=== PATIENT | male | born 1975 | race Caucasian/White ===

== ENCOUNTER → 2017-01-13 | Outpatient (CLI) | payer OTHER ==
--- NOTE | 2017-01-13 16:34 | REP ---
Clinical: Right flank pain. Technique: Single supine view of the abdomen and pelvis. Comparison: None. Findings: Bowel gas pattern is nonspecific. No definite renal calcifications are appreciated. Calcifications in the pelvis likely represent phleboliths. Osseous structures are intact. Impression: No obvious renal calcifications. Calcification in the pelvis likely phleboliths. Signed by Kingston Byrnes MD 01/13/2017 04:25 P
[2017-01-13 16:58] LABS: CALCIUM OXALATE CRYSTALS SMALL
== END ==
LOC: M RAD 15:39
PROVIDERS: ATTEND Physician Assistant Medical
DX: R10.9 Unspecified abdominal pain (principal)

== ENCOUNTER 2017-10-26 13:25 | Emergency (ER) | payer OTHER ==
[2017-10-26] MEDS: NITROGLYCERIN 0.4 MG SUBL TABLET SL ×3 (14:06→14:20)
[2017-10-26] MEDS: ASPIRIN 81 MG CHEW TABLET PO (14:06)
[2017-10-26 14:16] LABS: BASO % 0.7 % (0.0-1.0); HEMATOCRIT 43.3 % (42.0-52.0); HEMOGLOBIN 15.1 g/dl (13.5-17.5); IMMATURE GRANULOCYTE % 0.2 % (0-3.0); LYMPH # 1.2 10^3/uL (1.5-4.5); LYMPH % 19.1 % (24.0-44.0); MEAN CORPUSCULAR HEMOGLOBIN 31.7 pg (27.0-33.0); MEAN CORPUSCULAR HGB CONC 34.9 g/dl (32.0-36.5); MONO # 0.4 10^3/uL (0.0-0.8); NEUTROPHILS # 4.5 10^3/uL (1.8-7.7); PLATELET COUNT, AUTOMATED 254 10^3/uL (150-450); RED BLOOD COUNT 4.76 10^6/uL (4.30-6.10); RED CELL DISTRIBUTION WIDTH 12.1 % (11.5-14.5); WHITE BLOOD COUNT 6.1 10^3/uL (4.0-10.0)
[2017-10-26 14:25] LABS: INR 0.94; PROTHROMBIN TIME 12.7 SECONDS (12.4-14.5)
[2017-10-26 14:26] LABS: PARTIAL THROMBOPLASTIN TIME 25.8 SECONDS (26.8-37.9)
[2017-10-26 15:07] LABS: ALBUMIN 3.8 GM/DL (3.2-5.2); ALKALINE PHOSPHATASE 69 U/L (45-117); ALT/SGPT 36 U/L (12-78); ANION GAP 5 MEQ/L (8-16); AST/SGOT 23 U/L (7-37); BILIRUBIN,DIRECT < 0.1 MG/DL (0.0-0.2); BILIRUBIN,TOTAL 0.5 MG/DL (0.2-1.0); BLOOD UREA NITROGEN 19 MG/DL (7-18); CALCIUM LEVEL 9.1 MG/DL (8.5-10.1); CARBON DIOXIDE LEVEL 28 MEQ/L (21-32); CHLORIDE LEVEL 106 MEQ/L (98-107); CK-MB VALUE MASS < 1.0 NG/ML (<3.6); CPK CREATINE PHOSPHOKINASE 153 U/L (39-308); CREATININE FOR GFR 1.14 MG/DL (0.70-1.30); GLOMERULAR FILTRATION RATE > 60.0 (>60); GLUCOSE, FASTING 128 MG/DL (70-100); LIPASE 215 U/L (73-393); MB/CK RELATIVE INDEX 0.65 (< OR =4); SODIUM LEVEL 139 MEQ/L (136-145); TOTAL PROTEIN 7.6 GM/DL (6.4-8.2); TROPONIN I < 0.02 NG/ML (< 0.10)
[2017-10-26] MEDS ORDERED: ISOVUE-370 76% 100ML VIAL (Q9967) As Ordered (16:28)
[2017-10-26] MEDS: MORPHINE 4 MG/ML 1ML VIAL/SYRINGE (J2270) IV (16:49)
[2017-10-26 20:09] LABS: CK-MB VALUE MASS < 1.0 NG/ML (<3.6); CPK CREATINE PHOSPHOKINASE 139 U/L (39-308); MB/CK RELATIVE INDEX 0.71 (< OR =4); TROPONIN I < 0.02 NG/ML (< 0.10)
[2017-10-26] MEDS: ACETAMINOPHEN TAB 650MG DOSE (2X325MG) PO (20:23)
== END 2017-10-26 20:49 | disposition home or self-care (01) ==
LOC: M ED 13:25
DX: R07.9 Chest pain, unspecified (principal); R91.1 Solitary pulmonary nodule; E78.9 Disorder of lipoprotein metabolism, unspecified; M54.5 Low back pain; F17.220 Nicotine dependence, chewing tobacco, uncomplicated
CPT/HCPCS: J2270

== ENCOUNTER 2018-05-31 11:21 | Emergency (ER) | payer OTHER ==
[2018-05-31] MEDS: methylPREDNISolone INJ 125 MG/2 ML VIAL (J2930) IM (12:37)
== END 2018-05-31 13:35 | disposition home or self-care (01) ==
LOC: M ED 11:21
DX: M54.2 Cervicalgia (principal); R10.30 Lower abdominal pain, unspecified; F43.10 Post-traumatic stress disorder, unspecified; K21.9 Gastro-esophageal reflux disease without esophagitis; G47.00 Insomnia, unspecified; G54.0 Brachial plexus disorders
CPT/HCPCS: J2930

== ENCOUNTER 2018-06-01 18:53 | Emergency (ER) | payer OTHER ==
[2018-06-01] MEDS: predniSONE 20 MG TAB PO (20:55)
[2018-06-01] MEDS: GABAPENTIN 300 MG CAP PO (20:55)
== END 2018-06-01 20:59 | disposition home or self-care (01) ==
LOC: M ED 18:53
DX: G54.0 Brachial plexus disorders (principal); M54.12 Radiculopathy, cervical region; E78.00 Pure hypercholesterolemia, unspecified; G47.00 Insomnia, unspecified; K21.9 Gastro-esophageal reflux disease without esophagitis; F43.10 Post-traumatic stress disorder, unspecified; Z79.899 Other long term (current) drug therapy
CPT/HCPCS: 99283

== ENCOUNTER 2018-06-04 17:52 | Emergency (ER) | payer OTHER ==
[2018-06-04] MEDS: diazePAM 10 MG TAB PO (18:29)
== END 2018-06-04 20:17 | disposition home or self-care (01) ==
LOC: M ED 17:52
DX: M54.12 Radiculopathy, cervical region (principal); F41.9 Anxiety disorder, unspecified; K21.9 Gastro-esophageal reflux disease without esophagitis; E78.5 Hyperlipidemia, unspecified; Z79.899 Other long term (current) drug therapy
CPT/HCPCS: 99283

== ENCOUNTER 2018-06-15 19:30 | Emergency (ER) | payer OTHER ==
[2018-06-15] MEDS: LORazepam 2 MG/ML VIAL (J2060) IV (21:46)
[2018-06-15 22:20] LABS: BASO % 0.4 % (0.0-1.0); EOS % 0.1 % (0.0-3.0); HEMATOCRIT 44.2 % (42.0-52.0); HEMOGLOBIN 15.5 g/dl (13.5-17.5); IMMATURE GRANULOCYTE % 0.1 % (0-3.0); LYMPH # 1.5 10^3/uL (1.5-4.5); LYMPH % 21.6 % (24.0-44.0); MEAN CORPUSCULAR HEMOGLOBIN 32.4 pg (27.0-33.0); MEAN CORPUSCULAR HGB CONC 35.1 g/dl (32.0-36.5); MEAN CORPUSCULAR VOLUME 92.3 fl (80.0-96.0); MONO # 0.5 10^3/uL (0.0-0.8); MONO % 6.8 % (0.0-5.0); NEUTROPHILS # 4.8 10^3/uL (1.8-7.7); PLATELET COUNT, AUTOMATED 226 10^3/uL (150-450); RED BLOOD COUNT 4.79 10^6/uL (4.30-6.10); RED CELL DISTRIBUTION WIDTH 11.7 % (11.5-14.5); WHITE BLOOD COUNT 6.8 10^3/uL (4.0-10.0)
[2018-06-15 22:47] LABS: BLOOD UREA NITROGEN 12 MG/DL (7-18); GLUCOSE, FASTING 98 MG/DL (70-100)
[2018-06-15 22:48] LABS: ANION GAP 6 MEQ/L (8-16); CALCIUM LEVEL 8.4 MG/DL (8.5-10.1); CARBON DIOXIDE LEVEL 29 MEQ/L (21-32); CHLORIDE LEVEL 105 MEQ/L (98-107); CREATININE FOR GFR 1.03 MG/DL (0.70-1.30); GLOMERULAR FILTRATION RATE > 60.0 (>60); POTASSIUM SERUM 4.1 MEQ/L (3.5-5.1); SODIUM LEVEL 140 MEQ/L (136-145)
== END 2018-06-16 00:12 | disposition home or self-care (01) ==
LOC: M ED 06-16 00:12
DX: F41.9 Anxiety disorder, unspecified (principal); M54.2 Cervicalgia; G89.29 Other chronic pain; E78.9 Disorder of lipoprotein metabolism, unspecified; Z79.899 Other long term (current) drug therapy
CPT/HCPCS: J2060

== ENCOUNTER → 2018-12-01 | Outpatient (REF) | payer OTHER ==
[~2018-12-01] MED LIST: DICY10CA13 PO; GABA-843 PO; HYDR-3715 PO; HYDR-643 PO; IBUP-1022 PO; IBUP200C25 PO; MEDR4PAK PO; OMEP40CA2 PO; SERT-141 PO; VALI5TAB PO
[2018-12-01 12:59] LABS: HEMATOCRIT 44.3 % (42.0-52.0); HEMOGLOBIN 14.8 g/dl (13.5-17.5); MEAN CORPUSCULAR HEMOGLOBIN 29.7 pg (27.0-33.0); MEAN CORPUSCULAR HGB CONC 33.4 g/dl (32.0-36.5); MEAN CORPUSCULAR VOLUME 88.8 fl (80.0-96.0); PLATELET COUNT, AUTOMATED 232 10^3/uL (150-450); RED BLOOD COUNT 4.99 10^6/uL (4.30-6.10); WHITE BLOOD COUNT 15.5 10^3/uL (4.0-10.0)
[2018-12-01 13:36] LABS: MONO SCRN NEGATIVE (NEGATIVE)
== END ==
LOC: M LAB REF 19:09
PROVIDERS: ATTEND Nurse Practitioner Family
DX: J02.9 Acute pharyngitis, unspecified (principal)

== ENCOUNTER 2019-12-28 21:51 | Emergency (ER) | payer OTHER ==
[~2019-12-28] VITALS: Ht 182.9 cm; Wt 95.5 kg
[~2019-12-28 21:51] MED LIST changes: -OMEP40CA2 PO; +OMEP40CA97 PO
[2019-12-28] MEDS ORDERED: AUGM500T34 PO (21:59)
[2019-12-28] MEDS ORDERED: OMEP10CASR PO (21:59)
[2019-12-28] MEDS ORDERED: BUSP5TA PO (21:59)
[2019-12-28 23:15] LABS: BASO % 0.3 % (0.0-1.0); EOS % 0.2 % (0.0-3.0); HEMATOCRIT 45.2 % (42.0-52.0); HEMOGLOBIN 15.7 g/dl (13.5-17.5); LYMPH # 1.8 10^3/uL (1.5-5.0); LYMPH % 19.8 % (24.0-44.0); MEAN CORPUSCULAR HEMOGLOBIN 32.2 pg (27.0-33.0); MEAN CORPUSCULAR HGB CONC 34.7 g/dl (32.0-36.5); MEAN CORPUSCULAR VOLUME 92.6 fl (80.0-96.0); MONO # 0.6 10^3/uL (0.0-0.8); MONO % 6.4 % (0.0-5.0); NEUTROPHILS # 6.5 10^3/uL (1.5-8.5); NEUTROPHILS % 73.1 % (36.0-66.0); PLATELET COUNT, AUTOMATED 261 10^3/uL (150-450); RED BLOOD COUNT 4.88 10^6/uL (4.30-6.10); WHITE BLOOD COUNT 8.8 10^3/uL (4.0-10.0)
[2019-12-28 23:36] LABS: ERYTHROCYTE SEDIMENTATION RATE 9 mm/hr (0-15)
--- NOTE | 2019-12-28 23:38 | REPVR ---
PROCEDURE INFORMATION: Exam: US Duplex Right Upper Extremity Veins, Limited Exam date and time: 12/28/2019 11:32 PM Age: 44 years old Clinical indication: Pain; Arm, upper; Right; Additional info: R/O dvt, swelling/pain TECHNIQUE: Imaging protocol: Real-time Duplex ultrasound of the Right Upper Extremity with 2-D jackson scale, color Doppler flow and spectral waveform analysis with image documentation. Limited exam focused on the right upper extremity veins. COMPARISON: No relevant prior studies available. FINDINGS: Right deep veins: Unremarkable. Axillary and brachial veins are patent throughout without thrombus. Normal Doppler waveforms. Normal compressibility and/or augmentation response. Visualized internal jugular and subclavian veins are patent. Right superficial veins: Unremarkable. Visualized cephalic and basilic veins are patent without thrombus. Soft tissues: Unremarkable. IMPRESSION: No evidence of deep vein thrombosis. Electronically signed by: Yoko Padilla On 12/28/2019 23:38:29 PM
[2019-12-28 23:45] LABS: ALBUMIN 3.7 GM/DL (3.2-5.2); ALT/SGPT 39 U/L (12-78); BILIRUBIN,DIRECT < 0.1 MG/DL (0.0-0.2); BILIRUBIN,TOTAL 0.3 MG/DL (0.2-1.0); BLOOD UREA NITROGEN 17 MG/DL (7-18); C REACTIVE PROTEIN QUANTITATIV 0.52 MG/DL (0.00-0.30); CALCIUM LEVEL 8.5 MG/DL (8.5-10.1); CARBON DIOXIDE LEVEL 23 MEQ/L (21-32); CHLORIDE LEVEL 110 MEQ/L (98-107); CREATININE FOR GFR 1.01 MG/DL (0.70-1.30); GLOMERULAR FILTRATION RATE > 60.0 (>60); GLUCOSE, FASTING 152 MG/DL (70-100); POTASSIUM SERUM 3.6 MEQ/L (3.5-5.1); SODIUM LEVEL 143 MEQ/L (136-145); TOTAL PROTEIN 7.4 GM/DL (6.4-8.2)
[2019-12-29] MEDS ORDERED: ceFAZolin SOD 1 GM in D5W MINI-BAG PLUS 50 ML IV ONE (00:15)
[2019-12-29] MEDS ORDERED: DICL75TA PO (00:42)
[2019-12-29 01:07] VITALS: BP 122/69
== END 2019-12-29 01:08 | disposition home or self-care (01) ==
LOC: M ED 21:51
DX: L03.113 Cellulitis of right upper limb (principal); L03.011 Cellulitis of right finger; K21.9 Gastro-esophageal reflux disease without esophagitis; E78.5 Hyperlipidemia, unspecified; F43.10 Post-traumatic stress disorder, unspecified; F41.9 Anxiety disorder, unspecified; F32.9 Major depressive disorder, single episode, unspecified; Z79.2 Long term (current) use of antibiotics; Z79.899 Other long term (current) drug therapy
CPT/HCPCS: 80048; 80076; 83605; 85025; 85652; 86140; 87040; 93971; 96365; 99284; J0690

== ENCOUNTER → 2020-07-23 | Outpatient (CLI) | payer OTHER ==
[~2020-07-23] MED LIST changes: +AUGM500T34 PO; +BUSP5TA PO; +DICL75TA PO; +OMEP10CASR PO; +ROSU10TA6 PO
== END ==
LOC: M LABSMTC 10:10
PROVIDERS: ATTEND Anesthesiology
DX: Z01.812 Encounter for preprocedural laboratory examination (principal); Z20.822 Contact with and (suspected) exposure to COVID-19

== ENCOUNTER 2020-07-28 07:03 | Day surgery (SDC) | payer OTHER ==
[~2020-07-28] VITALS: Ht 182.9 cm; Wt 94.3 kg
[~2020-07-28 07:03] MED LIST changes: +GABA-282 PO; -GABA-843 PO; +NS 1,000 ML IV ONE
--- OUTSIDE RECORDS SUMMARY | 2020-07-28 07:08 | CCD | Continuity of Care Document ---
Author Author Kade NARAYAN M.D. Organization Unknown Address [address] [place] [id number] Phone [phone] Care Team Providers Care Program Planner Name Role Phone Reno Alfonso MD [facility] [phone] Problems Active Problems Provider Date Irritable bowel syndrome Paolo Narayan M.D. Onset: 06/2020 Gastroesophageal reflux disease Paolo Narayan M.D. Ons et: 10/17/2018 Social History Type Date Description Comments Sex Unknown ETOH Use Denies alcohol use Tobacco Use Start: Unknown Patient has never smoked Allergies, Adverse Reactions, Alerts Description No Known Drug Allergies Medications Active Medications SIG Qnty Indications Ordering Provide r Date Suprep Bowel Prep Kit 17.5-3.13-1.6GM/177ML Solution use as directed 354ml Paolo Narayan M.D. 05/27/2020 Gabapentin 300mg Capsules Take One Capsule By Mouth Three Times A Day Unknown Hydroxyzine HCL 50mg Tablets Unknown Buspirone HCL 10mg Tablets Unknown Diclofenac Sodium 75mg Tablets DR Unknown Immunizations Description No Information Available Vital Signs Date Vital Result Comment 05/27/2020 1:09pm Height 72 inches 6'0" Weight 206.00 lb BP Systolic 128 mmHg BP Diastolic 82 mmHg Heart Rate 81 /min BMI (Body Mass Index) 27.9 kg/m2 Weight 93.442 kg Body Temperature 97.0 F 10/17/2018 12:05pm Height 72 inches 6'0" Weight 201.00 lb BP Systolic 115 mmHg BP Diastolic 78 mmHg Heart Rate 83 /min BMI (Body Mass Index) 27.3 kg/m2 Weight 91.174 kg Results Description No Information Available Procedures Description No Information Available Medical Devices Description No Information Available Encounters Type Date Location Provider Dx Diagnosis Office Visit 05/27/2020 1:15p Main Office Paolo Narayan M.D. K 58.8 Other irritable bowel syndrome R12 Heartburn Assessments Date Code Description Provider 05/27/2020 K58.8 Irritable bowel syndrome Paolo Narayan M.D. 05/27/2020 R12 Heartburn Paolo hansen M.D. Plan of Treatment Future Appointment(s):* 06/18/2020 6:00 am - Pat-Remih at Main Office * 06/28/2020 9:00 am - Paolo Narayan M.D. at Main Office 05/27/2020 - Paolo Narayan M.D.* K58.8 Irritable bowel syndrome* Comments: * 45 yo -rwandan male refered for abdominal cramps/heartburn/irregular bowel habits. Antispasm meds help his symptoms. No weight loss, nausea/vomiting, or rectal bleeding. Plan:1. Colonoscopy + egd.2. Informed consent. * R12 Heartburn* Comments:* Schedule EGD.Informed consent given. Functional Status Description No Information Available Mental Status Description No Information Available Referrals Refer to Reason for Referral Status Appt Date Paolo Narayan M.D. Scheduled [address] [place] [phone]
--- OUTSIDE RECORDS SUMMARY | 2020-07-28 07:08 | CCD ---
Author Author [facility] Organization [facility] Address Unknown Phone Unavailable Care Team Providers Care Blind Stitch Machine Operator Name Role Phone Julian Narayan MD Unavailable Unavailable Julian Narayan MD Unavailable Unavailable Julian Narayan MD Unavailable Unavailable Julian Narayan MD Unavailable Unavailable Julian Narayan MD Unavailable Unavailable Julian Narayan MD Unavailable Unavailable Julian Narayan MD Unavailable Unavailable Julian Narayan MD Unavailable Unavailable Julian Narayan MD Unavailable Unavailable Julian Narayan MD Unavailable Unavailable Julian Narayan MD Unavailable Unavailable Julian Narayan MD Unavailable Unavailable Julian Narayan MD Unavailable Unavailable Julian Narayan MD Unavailable Unavailable Julian Narayan MD Unavailable Unavailable Julian Narayan MD Unavailable Unavailable Julian Narayan MD Unavailable Unavailable Julian Narayan MD Unavailable Unavailable Julian Narayan MD Unavailable Unavailable Julian Narayan MD Unavailable Unavailable Julian Narayan MD Unavailable Unavailable Julian Narayan MD Unavailable Unavailable Julian Narayan MD Unavailable Unavailable Helene, S Paolo MD Unavailable Unavailable Helene, S Paolo MD Unavailable Unavailable Helene, S Paolo MD Unavailable Unavailable Helene, S Paolo MD Unavailable Unavailable Helene, S Paolo MD Unavailable Unavailable Helene, S Paolo MD Unavailable Unavailable Helene, S Paolo MD Unavailable Unavailable Helene, S Paolo MD Unavailable Unavailable Helene, S Paolo MD Unavailable Unavailable Helene, S Paolo MD Unavailable Unavailable Helene, S Paolo MD Unavailable Unavailable Helene, S Paolo MD Unavailable Unavailable Helene, S Paolo MD Unavailable Unavailable Helene, S Paolo MD Unavailable Unavailable Helene, S Paolo MD Unavailable Unavailable Helene, S Paolo MD Unavailable Unavailable Helene, S Paolo MD Unavailable Unavailable Helene, S Paolo MD Unavailable Unavailable Helene, S Paolo MD Unavailable Unavailable Helene, S Paolo MD Unavailable Unavailable Helene, S Paolo MD Unavailable Unavailable Helene, S Paolo MD Unavailable Unavailable Helene, S Paolo MD Unavailable Unavailable Helene, S Paolo MD Unavailable Unavailable Re-disclosure Warning The records that you are about to access may contain information from federally-assisted alcohol or drug abuse programs. If such information is present, then the following federally mandated warning applies: This information has been disclosed to you from records protected by federal confidentiality rules (42 CFR part 2). The federal rules prohibit you from making any further disclosure of this information unless further disclosure is expressly permitted by the written consent of the person to whom it pertains or as otherwise permitted by 42 CFR part 2. A general authorization for the release of medical or other information is NOT sufficient for this purpose. The Federal rules restrict any use of the information to criminally investigate or prosecute any alcohol or drug abuse patient.The records that you are about to access may contain highly sensitive health information, the redisclosure of which is protected by Article 27-F of the [facility] Public Health law. If you continue you may have access to information: Regarding HIV / AIDS; Provided by facilities licensed or operated by the [facility] Office of Mental Health; or Provided by the [facility] Office for People With Developmental Disabilities. If such information is present, then the following [facility] mandated warning applies: This information has been disclosed to you from confidential records which are protected by state law. State law prohibits you from making any further disclosure of this information without the specific written consent of the person to whom it pertains, or as otherwise permitted by law. Any unauthorized further disclosure in violation of state law may result in a fine or skilled nursing sentence or both. A general authorization for the release of medical or other information is NOT sufficient authorization for further disc losure. Family History Family Member Name Family Member Gender Family Member Status Date o f Status Description Data Source(s) Unknown Unknown Problem [facility] ([facility]) Encounters Encounter Providers Location Date Indications Data Source(s ) Outpatient Attender: Paolo Narayan MD Main Office 05/27/2020 12:15:00 PM EST [facility] ([facility]) Medications Medication Brand Name Start Date Product Form Dose Route Admi nistrative Instructions Pharmacy Instructions Status Indications Reaction Description Data Source(s) Suprep Bowel Prep Kit Suprep Bowel Prep Kit 05/27/2020 12:00:00 AM EST active [facility] ([facility]) Diclofenac Sodium 75 MG Delayed Release Oral Tablet DICLOFEN AC SODIUM 12/29/2019 12:00:00 AM EDT tablet,delayed release (DR/EC) 30 T XOCHITL ONE TABLET BY MOUTH TWICE A DAY TAKE ONE TABLET BY MOUTH TWICE A DAY SOLD: 12/29/2019 [facility] 875-125 mg 12/28/2019 12:00:00 AM EDT tablet 20 TAKE ONE TABLET BY MOUTH TWICE A DAY FOR 10 DAYS TAKE ONE TABLET BY MOUTH TWICE A DAY FOR 10 DAYS SOLD: 12/28/2019 [facility] Insurance Providers Payer name Policy type / Coverage type Policy ID Covered constitution party ID Covered constitution party's relationship to marion Policy [place] Plan Information 'S ADMINISTRATION [id number] SP [id number] [facility] O [id number] S [id number] Com[employer]'s Administration Commercial [id number] Self [id number] [facility] [id number] SP [id number] [employer] O [id number] S [id number] [employer] - CLINIC [id number] 18 [id number] [facility] O [id number] S [id number] N REGIONAL CLAIMS JAMIE -CLINIC [id number] 18 [id number] N REGIONAL CLAIMS J[employer]IE -O/P [id number] 18 [id number] [facility] P [id number] S [id number] Problems, Conditions, and Diagnoses Code Display Name Description Problem Type Effective Dates Data Source(s) 85310175 Irritable bowel syndrome Irritable bowel syndrome Prob kimani 05/27/2020 12:00:00 AM EST [facility] ([facility]) Results ID Date Data Source [id number] 07/23/2020 11:00:00 AM EST [facility] Name Value Range Interpretation Code Description Data Vianca rce(s) Supporting Document(s) SARS coronavirus 2 RNA Not Detected [facility] [place] This lab was ordered by [facility] and reported by [facility]. Procedure Vital Signs ID Date Data Source UNK Name Value Range Interpretation Code Description Data Source(s) Body temperature 97.0 [degF] 97.0 [degF] [facility] ([facility]) Body weight 93.442 kg 93.442 kg [facility]) Body mass index (BMI) [Ratio] 27.9 kg/m2 27.9 k g/m2 [facility] ([facility]) Heart rate 81 /min 81 /min [facility] ([facility]) Diastolic blood pressure 82 mm[Hg] 82 mm[Hg] [facility] ([facility]) Systolic blood pressure 128 mm[Hg] 128 mm[Hg] M ED[facility] ([facility]) Body weight 206.00 [lb_av] 206.00 [lb_av] [facility] T ([facility]) Body height 72 [in_i] 72 [in_i] [facility]) 6'0"
[2020-07-28] MEDS ORDERED: LIDOCAINE 2% 100MG/5ML SDV (FOR ANES.) As Ordered ONE (07:12)
[2020-07-28] MEDS ORDERED: propofoL 200 MG/20 ML VIAL As Ordered ONE ×2 (07:12→07:46)
--- NOTE | 2020-07-28 07:51 | ROOR ---
Patient Name: Kade Long Procedure Date: 07/28/2020 7:35 AM Date of : 1975 Age: 45 Room: [facility] Gender: Male Note Status: Finalized Procedure: Upper Endoscopy + Biopsies Indications: Epigastric abdominal pain, Heartburn, Exclusion of Alcantara's esophagus Providers: Paolo Narayan MD Referring MD: [facility], Admin. Requesting Provider: Medicines: Monitored Anesthesia Care Complications: No immediate complications. Procedure: Pre-Anesthesia Assessment: - The heart rate, respiratory rate, oxygen saturations, blood pressure, adequacy of pulmonary ventilation, and response to care were monitored throughout the procedure. The Endoscope was introduced through the mouth, and advanced to the second part of duodenum. The upper GI endoscopy was accomplished without difficulty. The patient tolerated the procedure well. Findings: The Z-line was variable and was found 41 cm from the incisors. Multiple biopsies were obtained with cold forceps for evaluation to rule out Alcantara's Esophagus randomly at the gastroesophageal junction. A small hiatal hernia was present. No other significant abnormalities were identified in a careful examination of the stomach. Biopsies were taken with a cold forceps in the gastric antrum for Helicobacter pylori testing. The exam of the duodenum was otherwise normal. Impression: - Z-line variable, 41 cm from the incisors. - Small hiatal hernia. - Multiple biopsies were obtained at the gastroesophageal junction. - Biopsies were taken with a cold forceps for Helicobacter pylori testing. - The examination was otherwise normal. Recommendation: - Patient has a contact number available for emergencies. The signs and symptoms of potential delayed complications were discussed with the patient. Return to normal activities tomorrow. Written discharge instructions were provided to the patient. - High fiber diet. - Discharge patient to home. - Follow an antireflux regimen. - Continue present medications. - Await pathology results. - Telephone GI clinic for pathology results in 1 week. - Return to referring physician. - The findings and recommendations were discussed with the patient. Procedure Code(s): --- Professional --- 81991, Esophagogastroduodenoscopy, flexible, transoral; with biopsy, single or multiple Diagnosis Code(s): --- Professional --- K22.8, Other specified diseases of esophagus K44.9, Diaphragmatic hernia without obstruction or gangrene R10.13, Epigastric pain R12, Heartburn CPT copyright 2019 [employer]. All rights reserved. The codes documented in this report are preliminary and upon guard rail installer review may be revised to meet current compliance requirements. Paolo Narayan MD Paolo Narayan MD 07/28/2020 7:50:37 AM Electronically signed by Paolo Narayan MD Number of Addenda: 0 Note Initiated On: 07/28/2020 7:35 AM Estimated Blood Loss: Estimated blood loss: none.
--- NOTE | 2020-07-28 08:05 | ROOR ---
Patient Name: Kade Long Procedure Date: 07/28/2020 7:36 AM Date of : 1975 Age: 45 Room: [facility] Gender: Male Note Status: Finalized Procedure: Total Colonoscopy to Cecum + ileoscopy Indications: Abdominal pain in the right lower quadrant, Lower abdominal pain, Change in bowel habits Providers: Paolo Narayan MD Referring MD: [facility], Admin. Requesting Provider: Medicines: Monitored Anesthesia Care Complications: No immediate complications. Procedure: Pre-Anesthesia Assessment: - The heart rate, respiratory rate, oxygen saturations, blood pressure, adequacy of pulmonary ventilation, and response to care were monitored throughout the procedure. The Colonoscope was introduced through the anus and advanced to the cecum, identified by appendiceal orifice and ileocecal valve. The colonoscopy was performed without difficulty. The patient tolerated the procedure well. The quality of the bowel preparation was excellent. Findings: The perianal and digital rectal examinations were normal. Non-bleeding internal hemorrhoids were found during retroflexion. The hemorrhoids were small and Grade I (internal hemorrhoids that do not prolapse). Multiple small and large-mouthed diverticula were found in the recto-sigmoid colon, sigmoid colon and descending colon. The exam was otherwise without abnormality on direct and retroflexion views. The terminal ileum appeared normal. Impression: - Non-bleeding internal hemorrhoids. - Diverticulosis in the recto-sigmoid colon, in the sigmoid colon and in the descending colon. - The examination was otherwise normal on direct and retroflexion views. - The examined portion of the ileum was normal. - No specimens collected. - The exam was otherwise normal to the cecum. Recommendation: - Patient has a contact number available for emergencies. The signs and symptoms of potential delayed complications were discussed with the patient. Return to normal activities tomorrow. Written discharge instructions were provided to the patient. - High fiber diet. - Discharge patient to home. - Continue present medications. - Repeat colonoscopy in 10 years for screening purposes. - Return to referring physician. - The findings and recommendations were discussed with the patient. Procedure Code(s): --- Professional --- 87759, Colonoscopy, flexible; diagnostic, including collection of specimen(s) by brushing or washing, when performed (separate procedure) Diagnosis Code(s): --- Professional --- K64.0, First degree hemorrhoids R10.31, Right lower quadrant pain R10.30, Lower abdominal pain, unspecified R19.4, Change in bowel habit K57.30, Diverticulosis of large intestine without perforation or abscess without bleeding CPT copyright 2019 [employer]. All rights reserved. The codes documented in this report are preliminary and upon business area director review may be revised to meet current compliance requirements. Paolo Narayan MD Paolo Narayan MD 07/28/2020 8:05:10 AM Electronically signed by Paolo Narayan MD Number of Addenda: 0 Note Initiated On: 07/28/2020 7:36 AM Estimated Blood Loss: Estimated blood loss: none.
[2020-07-28 08:25] VITALS: BP 137/81
== END 2020-07-28 08:40 | disposition home or self-care (01) ==
LOC: M OPP 07:03
PROVIDERS: ATTEND Internal Medicine Gastroenterology
DX: R10.31 Right lower quadrant pain (principal); R19.4 Change in bowel habit; R10.13 Epigastric pain; K64.0 First degree hemorrhoids; K57.30 Diverticulosis of large intestine without perforation or abscess without bleeding; D13.0 Benign neoplasm of esophagus; D13.1 Benign neoplasm of stomach; K22.8 Other specified diseases of esophagus; K44.9 Diaphragmatic hernia without obstruction or gangrene; E78.5 Hyperlipidemia, unspecified; K58.9 Irritable bowel syndrome, unspecified; F41.9 Anxiety disorder, unspecified; F32.9 Major depressive disorder, single episode, unspecified; F43.10 Post-traumatic stress disorder, unspecified; G47.00 Insomnia, unspecified; F17.220 Nicotine dependence, chewing tobacco, uncomplicated; Z79.899 Other long term (current) drug therapy

== ENCOUNTER 2021-04-14 11:39 | Emergency (ER) | payer OTHER ==
[~2021-04-14] VITALS: Ht 182.9 cm; Wt 95.2 kg
[~2021-04-14 11:39] MED LIST changes: -NS 1,000 ML IV ONE; +OMEP40CA4 PO; -OMEP40CA97 PO
[2021-04-14] MEDS ORDERED: ALBUTEROL 90 MCG/ACT 8GM HFA INHALER INH ONE (12:25)
--- NOTE | 2021-04-14 13:01 | REP ---
INDICATION: Coronavirus workup. COMPARISON: Comparison chest x-ray June 15, 2018. TECHNIQUE: Portable upright AP chest radiograph. FINDINGS: The lungs are well inflated and free of infiltrate. Pleural angles are sharp. Heart size is normal. Pulmonary vasculature is not increased. IMPRESSION: No active disease. <Electronically signed by Sudhakar Woodruff > 04/14/21 [id number]
[2021-04-14 13:18] VITALS: O2SAT 96
[2021-04-14 13:21] LABS: BASO % 0.5 % (0.0-1.0); HEMATOCRIT 47.6 % (42.0-52.0); HEMOGLOBIN 16.3 g/dl (13.5-17.5); LYMPH # 0.8 10^3/uL (1.5-5.0); LYMPH % 20.9 % (24.0-44.0); MEAN CORPUSCULAR HEMOGLOBIN 33.3 pg (27.0-33.0); MEAN CORPUSCULAR HGB CONC 34.2 g/dl (32.0-36.5); MEAN CORPUSCULAR VOLUME 97.3 fl (80.0-96.0); MONO # 0.6 10^3/uL (0.0-0.8); MONO % 17.4 % (2.0-8.0); NEUTROPHILS # 2.2 10^3/uL (1.5-8.5); NEUTROPHILS % 60.9 % (36.0-66.0); PLATELET COUNT, AUTOMATED 178 10^3/uL (150-450); RED BLOOD COUNT 4.89 10^6/uL (4.30-6.10); WHITE BLOOD COUNT 3.7 10^3/uL (4.0-10.0)
[2021-04-14 13:52] LABS: ALBUMIN 3.4 GM/DL (3.2-5.2); ALT/SGPT 53 U/L (12-78); BILIRUBIN,TOTAL 0.3 MG/DL (0.2-1.0); BLOOD UREA NITROGEN 10 MG/DL (7-18); C REACTIVE PROTEIN QUANTITATIV 1.34 MG/DL (0.00-0.30); CALCIUM LEVEL 8.8 MG/DL (8.5-10.1); CARBON DIOXIDE LEVEL 28 MEQ/L (21-32); CHLORIDE LEVEL 109 MEQ/L (98-107); CK-MB VALUE MASS < 1.0 NG/ML (<3.6); CPK CREATINE PHOSPHOKINASE 113 U/L (39-308); CREATININE FOR GFR 1.15 MG/DL (0.70-1.30); FERRITIN 178 NG/ML (26-388); GLOMERULAR FILTRATION RATE > 60.0 (>60); GLUCOSE, FASTING 93 MG/DL (70-100); LDH LACTATE DEHYDROGENASE 166 U/L (87-241); MB/CK RELATIVE INDEX 0.88 (< OR =4); POTASSIUM SERUM 4.3 MEQ/L (3.5-5.1); SODIUM LEVEL 142 MEQ/L (136-145); TOTAL PROTEIN 6.8 GM/DL (6.4-8.2); TROPONIN I < 0.02 NG/ML (< 0.10)
[2021-04-14] MEDS ORDERED: ISOVUE-370 76% 100ML VIAL As Ordered ONE (14:07)
--- NOTE | 2021-04-14 15:09 | REP ---
INDICATION: r/o PE. COMPARISON: October 26, 2017. TECHNIQUE: Contrast dose: 75 ML of Isovue [address] technique: Helical scanning is acquired and overlapping 1.5 mm and contiguous 3 mm axial images are reformatted. In addition, maximum intensity projection and multiplanar re-formation images are generated in sagittal and coronal imaging projections. FINDINGS: There is good opacification in the pulmonary arterial tree. There is no evidence of vessel cut off or filling defect to suggest pulmonary embolus. Homogeneous opacity is seen in the thoracic aorta. There is no evidence of aneurysm or dissection. There is no hilar or mediastinal mass or adenopathy. No pleural or pericardial effusion is seen. Lung window settings demonstrate no focal infiltrate. There is mild linear density in the right lower lobe consistent with platelike atelectasis. The left lower lobe 3 mm pulmonary nodule identified on [address] study is again seen unchanged. There are 2 subpleural 3 mm noncalcified pulmonary nodules in the right lower lobe on page 46/109 in series 5 of 2 of today's study. These are visible in retrospect and are unchanged. In addition there is a 2-3 mm nodule in the right upper lobe on axial page 40 of 109 series 502. This is also visible in retrospect and unchanged. No new pulmonary nodule is seen. No mass or infiltrate is seen. In the upper abdomen, normal adrenal glands are seen. There is a small accessory splenule at the tip of the pancreas. There is a small cyst in the right lobe of the liver. Visualized upper abdominal structures are otherwise unremarkable. IMPRESSION: No CT evidence of pulmonary embolus. Stable granulomatous nodules unchanged from 2018. Mild platelike atelectasis right lower lobe. No acute infiltrate is appreciated. <Electronically signed by Sudhakar Woodruff > 04/14/21 [id number]
[2021-04-14] MEDS ORDERED: EPINEPHrine INJ 1 MG/ML 1ML AMP IM PRN (15:25)
[2021-04-14] MEDS ORDERED: methylPREDNISolone 125MG 2ML VIAL IV PRN (15:25)
[2021-04-14] MEDS ORDERED: ALBUTEROL SULFATE 2.5 MG/0.5 ML INH NEB SOLN INH PRN (15:25)
[2021-04-14] MEDS ORDERED: diphenhydrAMINE 50MG/ML VIAL (J1200) IV PRN (15:25)
[2021-04-14] MEDS ORDERED: ALBUTEROL 90 MCG/ACT 8GM HFA INHALER INH PRN (15:25)
[2021-04-14] MEDS ORDERED: CASIRIVIMAB/IMDEVIMAB 1,200 MG in NS 250 ML IV ONE (15:25)
[2021-04-14] MEDS ORDERED: NS 1,000 ML IV SCH (15:25)
[2021-04-14 15:31] VITALS: BP 142/92
--- NOTE | 2021-04-14 21:41 | ECGEPIP ---
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
== END 2021-04-14 16:07 | disposition home or self-care (01) ==
LOC: M ED 11:39
DX: U07.1 COVID-19 (principal); J06.9 Acute upper respiratory infection, unspecified; R91.8 Other nonspecific abnormal finding of lung field; J98.11 Atelectasis; E11.9 Type 2 diabetes mellitus without complications; E78.5 Hyperlipidemia, unspecified; K21.9 Gastro-esophageal reflux disease without esophagitis; M19.09 Primary osteoarthritis, other specified site; Z87.442 Personal history of urinary calculi; F41.9 Anxiety disorder, unspecified; F32.9 Major depressive disorder, single episode, unspecified; F43.10 Post-traumatic stress disorder, unspecified; G47.00 Insomnia, unspecified; G89.29 Other chronic pain; M54.5 Low back pain; F17.220 Nicotine dependence, chewing tobacco, uncomplicated; Z79.899 Other long term (current) drug therapy
CPT/HCPCS: 36415; 71045; 71275; 80053; 82550; 82553; 82728; 83615; 84484; 85025; 85379; 86140; 93005; 99284; M0243; Q9967

== ENCOUNTER 2021-04-14 16:11 | Outpatient (CLI) | payer OTHER ==
[~2021-04-14] VITALS: Ht 182.9 cm; Wt 95.4 kg
[~2021-04-14 16:11] MED LIST changes: +ACETAMINOPHEN TAB 650MG DOSE (2X325MG) PO PRN; +ALBUTEROL 90 MCG/ACT 8GM HFA INHALER INH PRN; +ALBUTEROL SULFATE 2.5 MG/0.5 ML INH NEB SOLN INH PRN; +EPINEPHrine INJ 1 MG/ML 1ML AMP IM PRN; +NS 1,000 ML IV SCH; +diphenhydrAMINE 50MG/ML VIAL (J1200) IV PRN; +methylPREDNISolone 125MG 2ML VIAL IV PRN
[2021-04-14 16:15] VITALS: BP 166/94
--- NOTE | 2021-04-14 16:22 | CR.PDOC ---
General Date of Consultation: Apr 14, 2021 Referring Provider: RACHEL CRUZ PA-C Attending Physician: CARMELO CAMP MD Consultation REASON FOR CONSULTATION/CHIEF COMPLAINT: covid-19 infection for MABs HISTORY OF PRESENT ILLNESS: 45yo M with a history of NIDDM (diet controlled), HLD, GERD, chronic back pain,who received 1 of the 2 doses of a covid-19 vaccine in 11/2020, who developed fever, chills, cough, myalgias yesterday and called his PCP who directed to the ED for covid-19 testing and potential MABs. In the ED he was hemodynamically stable and afebrile and saturating well on room air. Studies were remarkable for a DDimer of 512 which prompted the PA to do a CTA chest due to some reports c/f pleurisy to r/o PE that was negative for a PE and without nilsa GGOs, CXR was without noted cardiopulmonary pathology, WBC was 3.7, hgb 16.3, platelets 178, na 142, K 4.3, Cr 1.15, troponin negative, and SARS antigen was positive. He denies nilsa chest pain, palpitations, abdominal pain, emesis, diarrhea, blood in stool or urine. I am now going to admit him for observation to receive MABs for covid-19 infection to reduce the risk severe disease. ALLERGIES: Please see below. HOME MEDICATIONS: Please see below. PAST MEDICAL HISTORY: NIDDM (diet controlled), HLD, GERD, chronic back pain PAST SURGICAL HISTORY: None SOCIAL HISTORY: Chews tobacco No alcohol No illicit drug use REVIEW OF SYSTEMS: Pertinent positives are noted in the HPI. The rest of the 10 point ROS was reviewed and was negative. PHYSICAL EXAMINATION: VITAL SIGNS: Please see below. GENERAL APPEARANCE: NAD HEENT: NCAT, EOMI, MMM RESPIRATORY: CTAB, no noted wheezing or crackles CARDIOVASCULAR: RRR, no m/r/g ABDOMEN: Normoactive sounds, soft, NTND EXTREMITIES: WWP, no LE edema NEUROLOGICAL: CN 3-12 intact, moving all extremities, grossly nonfocal PSYCHIATRIC: AOx3 LABORATORY DATA and IMAGING: as noted above ASSESSMENT: 45yo M with a history of NIDDM (diet controlled), HLD, GERD, chronic back pain,who received 1 of the 2 doses of a covid-19 vaccine in 11/2020, who developed fever, chills, cough, myalgias yesterday and now confirmed to be covid-19 positive who is now being admitted for observation to receive MABs to reduce the risk severe disease. Covid-19 infection: -Consented for casirivimab/imdevimab -ordered to receive casirivimab/imdevimab per order set -PRN infusion reaction meds are ordered -PRN acetaminophen for fever -albuterol PRN for cough or wheezing To discharge home after infusion is complete, to follow up with PCP in the outpatient setting within 7d, self isolate for 14d or until resolution of symptoms, and to mask when in the company of others. Allergies Coded Allergies: No Known Allergies (Unverified , 07/21/20) Home Medications Scheduled Buspirone HCl (Buspirone HCl) 5 Mg Tablet, 5 MG PO DAILY for 30 Days, #60 (Reported) Dicyclomine HCl (Dicyclomine HCl) 10 Mg Cap, 10 MG PO TID for irritable bowel symptoms, #30 Gabapentin (Gabapentin) 300 Mg Cap, 300 MG PO TID, #21 Hydroxyzine HCl (Hydroxyzine HCl) 10 Mg Tab, 1 TAB PO QPM for anxiety for 30 Days, #30 (Reported) Rosuvastatin Calcium (Rosuvastatin Calcium) 10 Mg Tablet, 10 MG PO QPM, (Reported) CARMELO CAMP MD Apr 14, 2021 15:50
[2021-04-14 16:23] VITALS: BP 166/94
[2021-04-14] MEDS ORDERED: CASIRIVIMAB/IMDEVIMAB 1,200 MG in NS 250 ML IV ONE (17:00)
[2021-04-14 17:08] VITALS: BP 160/78
[2021-04-14 17:40] VITALS: BP 141/71
[2021-04-14 18:12] VITALS: BP 138/68
[2021-04-14 18:40] VITALS: BP 142/72
== END 2021-04-14 18:45 | disposition home or self-care (01) ==
LOC: M OPCLI4PR 16:11 → M OPCLI4 16:11 → M MS4PR 16:12 → M OPCLI4PR 18:45
PROVIDERS: ATTEND Internal Medicine
DX: U07.1 COVID-19 (principal)